=== PATIENT | female | born 1975 | race Caucasian/White ===

== ENCOUNTER → 2017-06-07 | Outpatient (CLI) | payer BC ==
[~2017-06-07] MED LIST: FOLIC ACID1 MG PO; LEVOTHROID0.15 MG PO; METHOTREXATE2.5 MG PO
[2017-06-07 12:57] LABS: BILIRUBIN NEGATIVE (NEGATIVE); BLOOD 1+ (NEGATIVE); CLARITY SL CLOUDY (CLEAR); COLOR YELLOW (YELLOW); GLUCOSE NEGATIVE (NEGATIVE); KETONE NEGATIVE (NEGATIVE); LEUKO ESTERASE 1+ (NEGATIVE); NITRITE NEGATIVE (NEGATIVE); PH 5.5 (5.0-9.0); SPECIFIC GRAVITY >= 1.030 (1.005-1.030); UROBILINOGEN 0.2 E.U./dl (0.2-1.0)
[2017-06-07 13:16] LABS: BACTERIA TRACE; EPITHELIAL CELLS 10-158-10
== END | disposition home or self-care (01) ==
LOC: LAB 12:05
DX: C73 Malignant neoplasm of thyroid gland (principal)

== ENCOUNTER 2017-10-07 22:06 | Emergency (ER) | payer BC ==
[~2017-10-07] VITALS: Ht 165.1 cm; Wt 93.0 kg
[2017-10-07 22:20] VITALS: BP 158/78
== END 2017-10-07 23:59 | disposition home or self-care (01) ==
LOC: ED 22:06
DX: S60.211A Contusion of right wrist, initial encounter (principal); Z79.899 Other long term (current) drug therapy; W18.39XA Other fall on same level, initial encounter; Y93.89 Activity, other specified; Y92.89 Other specified places as the place of occurrence of the external cause; Y99.8 Other external cause status

== ENCOUNTER → 2021-09-20 | Outpatient (CLI) | payer BC, MEDICARE ==
[2021-09-20 11:57] LABS: BASO # 0.1 10*3/uL (0.0-0.1); EOS # 0.2 10*3/uL (0.0-0.4); EOS % 2.5 % (1.0-4.0); HEMATOCRIT 39.6 % (37.0-47.0); LYMPH # 2.7 10*3/uL (1.3-4.4); LYMPH % 30.3 % (27.0-41.0); MEAN CORPUSCULAR HGB 27.6 pg (27.0-31.0); MEAN CORPUSCULAR HGB CONC 31.1 g/dl (33.0-37.0); MEAN PLATELET VOLUME 10.3 fl (9.6-12.3); MONO # 0.8 10*3/uL (0.1-1.0); MONO % 8.6 % (3.0-9.0); NEUT % 56.9 % (47.0-73.0); PLATELET COUNT AUTOMATED 311 10*3/uL (130-400); RED BLOOD COUNT 4.45 10*6/uL (4.10-5.10); RED CELL DISTRI WIDTH 16.3 % (0-14.5); WHITE BLOOD COUNT 8.8 10*3/uL (4.8-10.8)
[2021-09-20 12:18] LABS: ALBUMIN 2.8 gm/dl (3.1-4.5); CREATININE 1.23 mg/dL (0.55-1.02); POTASSIUM 4.3 mmol/L (3.5-5.1); TOTAL PROTEIN 6.8 gm/dL (6.4-8.2)
== END | disposition home or self-care (01) ==
LOC: LAB 11:31
PROVIDERS: ATTEND Internal Medicine
DX: D76.3 Other histiocytosis syndromes (principal)

== ENCOUNTER 2022-05-25 13:22 | Emergency (ER) | payer BC, OTHER ==
[2022-05-25 13:44] VITALS: BP 153/64
[2022-05-25 14:21] LABS: BASO # 0.1 10*3/uL (0.0-0.1); BASO % 1.1 % (0.0-1.0); EOS # 0.6 10*3/uL (0.0-0.4); EOS % 5.5 % (1.0-4.0); HEMATOCRIT 43.4 % (37.0-47.0); LYMPH # 2.3 10*3/uL (1.3-4.4); LYMPH % 22.7 % (27.0-41.0); MEAN CELL VOLUME 88.4 fl (81.0-99.0); MEAN CORPUSCULAR HGB 27.9 pg (27.0-31.0); MEAN CORPUSCULAR HGB CONC 31.6 g/dl (33.0-37.0); MEAN PLATELET VOLUME 10.1 fl (9.6-12.3); MONO # 0.6 10*3/uL (0.1-1.0); MONO % 6.3 % (3.0-9.0); NEUT # 6.3 10*3/uL (2.3-7.9); NEUT % 63.8 % (47.0-73.0); PLATELET COUNT AUTOMATED 354 10*3/uL (130-400); RED BLOOD COUNT 4.91 10*6/uL (4.10-5.10); RED CELL DISTRI WIDTH 16.4 % (0-14.5)
[2022-05-25 14:33] LABS: ACT PARTIAL THROMBO TIME 29.1 SECONDS (20.0-32.1)
[2022-05-25 14:54] LABS: ALKALINE PHOSPHATASE 71 U/L (45-117); BUN 16 mg/dl (7-24); CHLORIDE 111 mmol/L (98-107); CREATININE 1.06 mg/dL (0.55-1.02); POTASSIUM 3.8 mmol/L (3.5-5.1); SGOT/AST 19 IU/L (3-35); SGPT/ALT 20 U/L (12-78); SODIUM 145 mmol/L (136-145); TOTAL PROTEIN 6.3 gm/dL (6.4-8.2)
== END 2022-05-25 17:05 | disposition home or self-care (01) ==
LOC: ED 13:22
PROVIDERS: Emergency Medicine
DX: J90 Pleural effusion, not elsewhere classified (principal); Z79.899 Other long term (current) drug therapy

== ENCOUNTER 2025-03-18 16:11 | Inpatient (IN) | payer OTHER ==
[~2025-03-18] VITALS: Ht 165.1 cm; Wt 59.6 kg
[2025-03-18 16:17] VITALS: BP 163/82
[2025-03-18 16:47] LABS: MEAN CELL VOLUME 87.4 fl (81.0-99.0); MEAN CORPUSCULAR HGB 27.8 pg (27.0-31.0); MEAN PLATELET VOLUME 11.1 fl (9.6-12.3); NUCLEATED RED BLOOD CELL 0.0 % (0.0-0.0); NUCLEATED RED BLOOD CELL 0.0 10*3/uL (0.0-0.0); PLATELET COUNT AUTOMATED 284 10*3/uL (130-400); RED CELL DISTRI WIDTH 19.7 % (0-14.5)
[2025-03-18 16:58] LABS: MANUAL DIFF REFLEX YES
[2025-03-18 17:00] LABS: BASOPHILS 1 % (0-1); PLATELET SUFFICIENCY NORMAL (NORMAL)
[2025-03-18 17:14] LABS: BUN 16 mg/dl (9-23)
[2025-03-18] MEDS ORDERED: SODIUM CHLORIDE 0.9% 1,000 ML IV ONE ×2 (17:20→20:20)
[2025-03-18] MEDS ORDERED: AZITHROMYCIN 250 ML IV ONE (18:05)
[2025-03-18] MEDS ORDERED: Ondansetron Hydrochloride 4 MG/2 ML VIAL IV PRN (18:40)
[2025-03-18] MEDS ORDERED: BISACODYL 10 MG SUPP R PRN (18:40)
[2025-03-18] MEDS ORDERED: Acetaminophen/Hydrocodone 5 MG/325 MG TABLET PO PRN (18:40)
[2025-03-18] MEDS ORDERED: ACETAMINOPHEN 650 MG SUPP R PRN (18:40)
[2025-03-18] MEDS ORDERED: BISACODYL 5 MG TAB PO PRN (18:40)
[2025-03-18] MEDS ORDERED: ACETAMINOPHEN 325 MG TAB PO PRN (18:40)
[2025-03-18 19:35] VITALS: BP 134/68
[2025-03-18] MEDS ORDERED: Synthroid,Lev200 MCG PO (20:20)
[2025-03-19] VITALS: BP 151/57
[2025-03-19 06:19] LABS: ACT PARTIAL THROMBO TIME 32.2 SECONDS (20.0-32.1)
[2025-03-19 06:31] LABS: BUN 14 mg/dl (9-23); FREE T4 0.80 ng/dl (0.89-1.76)
[2025-03-19 06:34] LABS: LDL CHOLESTEROL 35 mg/dL (9-159); SGPT/ALT < 7 U/L (5-49)
[2025-03-19 06:46] LABS: MEAN CELL VOLUME 90.4 fl (81.0-99.0); MEAN CORPUSCULAR HGB 26.9 pg (27.0-31.0); MEAN PLATELET VOLUME 11.3 fl (9.6-12.3); NUCLEATED RED BLOOD CELL 0.0 % (0.0-0.0); NUCLEATED RED BLOOD CELL 0.0 10*3/uL (0.0-0.0); PLATELET COUNT AUTOMATED 272 10*3/uL (130-400); RED CELL DISTRI WIDTH 19.4 % (0-14.5)
[2025-03-19 06:50] LABS: MANUAL DIFF REFLEX YES
[2025-03-19 07:25] LABS: PLATELET SUFFICIENCY NORMAL (NORMAL)
[2025-03-19 07:30] LABS: VITAMIN D, 25-HYDROXY 71.3 ng/mL (30-100)
[2025-03-19 08:00] VITALS: BP 136/72
[2025-03-19] MEDS ORDERED: IOHEXOL 300 MG/ML 100 ML VIAL IV ONE (11:35)
[2025-03-19 12:59] VITALS: BP 122/55
[2025-03-19] MEDS ORDERED: hydrOXYzine 50 MG CAP PO PRN (14:45)
[2025-03-19 14:55] LABS: ABG BASE EXCESS 0.3 mmol/L (-2.0-3.0); ABG O2 SATURATION 95.9 % (94.0-98.0); ARTERIAL BLOOD GAS PH 7.387 (7.350-7.450); ARTERIAL BLOOD GAS PO2 81.9 mmHg (83.0-108.0)
[2025-03-19 16:00] VITALS: BP 158/79
[2025-03-19] MEDS ORDERED: Cefepime Hydrochloride 2 GM,IV 1 EA in SODIUM CHLORIDE 0.9% 50 ML IV SCH (16:30)
[2025-03-19 20:00] VITALS: BP 143/57
== END 2025-03-20 00:49 | disposition short-term general hospital (02) | DRG 871 ==
LOC: ED 16:11 → 5E 18:06 → EDHOLD 18:06 → 5E 19:07
PROVIDERS: Nurse Practitioner Family; Student in an Organized Health Care Education/Training Program; ADMIT Student in an Organized Health Care Education/Training Program; ATTEND Student in an Organized Health Care Education/Training Program
DX: A41.9 Sepsis, unspecified organism (principal); J15.69 Pneumonia due to other Gram-negative bacteria; J96.01 Acute respiratory failure with hypoxia; J91.8 Pleural effusion in other conditions classified elsewhere; J98.11 Atelectasis; R73.9 Hyperglycemia, unspecified; E83.51 Hypocalcemia; R65.20 Severe sepsis without septic shock; E88.89 Other specified metabolic disorders; E89.0 Postprocedural hypothyroidism; F41.9 Anxiety disorder, unspecified; Z79.899 Other long term (current) drug therapy; Z90.710 Acquired absence of both cervix and uterus; Z82.5 Family history of asthma and other chronic lower respiratory diseases; Z80.8 Family history of malignant neoplasm of other organs or systems

== ENCOUNTER → 2025-03-29 | Outpatient (CLI) | payer OTHER ==
[~2025-03-29] MED LIST changes: +Synthroid,Lev200 MCG PO
== END ==
LOC: LAB 09:46 → RAD 09:46
PROVIDERS: ATTEND Family Medicine
DX: J18.9 Pneumonia, unspecified organism (principal); J90 Pleural effusion, not elsewhere classified; J84.10 Pulmonary fibrosis, unspecified